=== PATIENT | male | born 1995 | race Caucasian/White ===

== ENCOUNTER 2019-05-28 03:09 | Emergency (ER) | payer BC, OTHER ==
[~2019-05-28] VITALS: Ht 188 cm; Wt 99.8 kg
[2019-05-28] MEDS ORDERED: AQUAPHOR HEALIN50 GM TOP (03:37)
[2019-05-28] MEDS ORDERED: PREDNISONE50 MG PO (03:37)
[2019-05-28] MEDS ORDERED: VANOS60 GM TOP (03:37)
[2019-05-28 03:54] VITALS: BP 130/74
== END 2019-05-28 03:55 | disposition home or self-care (01) ==
LOC: M.ERS 03:09
DX: L24.0 Irritant contact dermatitis due to detergents (principal)

== ENCOUNTER 2020-04-07 16:52 | Emergency (ER) | payer BC, OTHER ==
[~2020-04-07] VITALS: Ht 188 cm; Wt 95.3 kg
[~2020-04-07 16:52] MED LIST: AQUAPHOR HEALIN50 GM TOP; PREDNISONE50 MG PO; VANOS60 GM TOP
[2020-04-07] MEDS ORDERED: PROCHAMBER1 EACH INH (17:06)
[2020-04-07] MEDS ORDERED: KEFLEX500 M1 PO (18:26)
[2020-04-07 18:45] VITALS: BP 127/82
== END 2020-04-07 18:46 | disposition home or self-care (01) ==
LOC: M.ERS 16:52
DX: L60.0 Ingrowing nail (principal)